=== PATIENT | male | born 1985 | race Hispanic/Latino ===

== ENCOUNTER 2022-04-03 04:45 | Emergency (ER) | payer BC, OTHER ==
--- OUTSIDE RECORDS SUMMARY | 2022-04-03 04:48 | XMS REPORT | Continuity of Care Document ---
:1985 Author Organization [facility] t Address [address] [place] [address] Care Team Providers Name Role Phone Timothy Gonzalez Juanjose Primary Care Physician Treva Champion Attending Clinician Katie Gonzalez RN Attending Clinician Unavailable UNKNOWN, ATTENDING Attending Clinician Unavailable Doctor Unassigned, [place] Attending Clinician Unavailable Richelle Damon Attending Clinician Carol Taylor Attending Clinician Payers Payer Name Policy Type Policy Number Effective Date Expiration Date Allan grover [facility] CLAIMS [id number] 2020 00:00:00 Problems Condition Condition Condition Status Onset Resolution Last Treating Co mments Source Name Details Category Date Date Treatment Clinician Date M54.16 M54.16 Diagnosis Active 2017-10-18 Me moria LUMBAR LUMBAR 7-19 11:11:00 l RADICULOPA RADICULOPA 00:00: Grzegorz reardon THY THY Active 00 10/18/2017 [facility] Lower back Lower back Disease Active U nivers pain pain 5-25 ity of 00:00: [place] [id number] Medical Branch Simple Simple Problem Active 2018-05-07 Joaquín jorge obesity obesity 16:04:13 l (disorder) (disorder) Grzegorz reardon Active Problem 05/07/2018 [facility] Scoliosis, Scoliosis Problem 2018-05-07 Memoria unspecifie , 16:04:13 l d unspecifie Nhan cabrales 05/07/2018 [facility] History of Past Illness Condition Condition Condition Status Onset Resolution Last Treating Co mments Source Name Details Category Date Date Treatment Clinician Date Radiculopa Radiculop Problem 2017-2018-05-07 2018-05-07 andrei Brunson, 725 16:04:13 16:04:13 l lumbar lumbar 03:09: [place] region 37 10/24/2017 05/07/2018 [facility] Allergies, Adverse Reactions, Alerts Allergy Allergy Status Severity Reaction(s) Onset Inactive Treating Comm ents Source Name Type Date Date Clinician NO KNOWN Drug Active Univers ALLERGIE Class ity of S [facility] [place] Social History Social Habit Start Date Stop Date Quantity Comments Source Exposure to Yes [facility] SARS-CoV-2 [facility] (event) [place] Tobacco use and 2020-11-28 2020-11-28 Never used Universit y of exposure 00:00:00 00:00:00 [facility] [place] Alcohol intake 2020-11-28 2020-11-28 Current drinker Unive rsity of 00:00:00 00:00:00 of alcohol [facility] (finding) Branch Social History 2017-09-10 2017-09-10 [facility] 19:29:13 19:29:13 Sex Ass[birth year] At [birth year] Universit y of 00:00:00 00:00:00 [facility] [place] Smoking Status Start Date Stop Date Source Never smoker [facility] Medications Ordered Filled Start Stop Current Ordering Indication Dosage Frequency Signature Comments Components Source Medication Medication Date Date Medication? Clinician (SIG) Name Name codeine-gua 2020- No 10mL 10 mL, Uni vers ifenesin 11-28 Oral, ity of (ROBITUSSIN 17:15: 16:11 [place] 10- 00 :00 dose, [facility] [place] mg/5 mL 11/28/20 at [place] solution 10 1215, PERNELL mL codeine-gua 2020- No 10mL 10 mL, Uni vers ifenesin 11-28 Oral, ity of (ROBITUSSIN 17:15: 16:11 [place] 10- 00 :00 dose, [facility] fl[place] mg/5 mL 11/28/20 at Branch solution 10 1215, PER[place]LL mL acetaminoph 2020- No 1000mg 1,000 mg, Univers en 11-28 Oral, ity of (TYLENOL) 16:15: 15:35 [place] tablet [place] :00 dose, [facility] 1,000 mg 11/28/20 at [facility] 1115, Routine ibuprofen 2020- No 800mg 800 mg, Uni vers (IBU) 11-28 Oral, ity of tablet 800 16:15: 15:36 ONCE, 1 [place] mg 00 :00 dose, [facility] 11/28/20 at [place] [id number], PERNELL acetaminoph 2020- No 1000mg 1,000 mg, Univers en 11-28 Oral, ity of (TYLENOL) 16:15: 15:35 [place]CE, [place] tablet [place] :00 dose, [facility] 1,000 mg 11/28/20 at [facility] 1115, Routine ibuprofen 2020- No 800mg 800 mg, Uni vers (IBU) 11-28 Oral, ity of tablet 800 16:15: 15:36 ONCE, 1 [place] mg 00 :00 dose, [facility] 11/28/20 at [place] [id number], [place] benzonatate Yes [id number] 100mg Take 1 Univers 100 mg 8-29 capsule by ity of capsule 00:00: mouth 3 [place] 00 (three) Medical times Branch daily as needed for Cough. albuterol 0 Yes [id number] 2{puff} Inhale 2 Univers 90 8-29 Puffs ity of mcg/actuati 00:00: every 4 [place] on inhaler 00 (four) Medical hours as Branch needed for Wheezing or Shortness of Breath. benzonatate 2020-0 Yes [id number] 100mg Take 1 Univers 100 mg 8-29 capsule by ity of capsule 00:00: mouth 3 [place] 00 (three) Medical times Branch daily as needed for Cough. albuterol 2020-0 Yes [id number] 2{puff} Inhale 2 Univers 90 8-29 Puffs ity of mcg/actuati 00:00: every 4 [place] on inhaler 00 (four) Medical hours as Branch needed for Wheezing or Shortness of Breath. codeine-gua 2020- No [id number] 10mL Take 10 mL Univers ifenesin 11-28 by mouth ity of 10-100 mg/5 00:00: 04:59 every 6 [place] mL solution 00 :00 (six) Medical hours as Branch needed for Cough for up to 7 days. Indication s: acute pain codeine-gua 2020- No 4647 10mL Take 10 mL Univers ifenesin 11-28 by mouth ity of 10-100 mg/5 00:00: 04:59 every 6 [place] mL solution 00 :00 (six) Medical hours as Branch needed for Cough for up to 7 days. Indication s: acute pain phentermine Yes 37.5mg Take 37.5 Univers (ADIPEX-P) 8-21 mg by ity of 37.5 mg 21:18: mouth [place] tablet 18 daily with Medical breakfast. Branch phentermine Yes 37.5mg Take 37.5 Univers (ADIPEX-P) 8-21 mg by ity of 37.5 mg 21:18: mouth [place] tablet 18 daily with Medical breakfast. Branch phentermine Yes 37.5mg Take 37.5 Univers (ADIPEX-P) 8-21 mg by ity of 37.5 mg 21:18: mouth [place] tablet 18 daily with Medical breakfast. Branch acetaminoph 2020- No 4647 1{tbl} Take 1 U nivers en-codeine 11-20 tablet by ity of 300-30 mg 00:00: 04:59 mouth [place] tablet 00 :00 every 6 Medical (six) Branch hours as needed for Pain (scale 7-10) for up to 7 days. Indication s: acute pain pregabalin Yes See Memoria 50 MG Oral 7-19 Instructio l Capsule 21:14: ns, 1 cap Ragini nn [Lyrica] 00 PO Q HS x 1 week, then BID, # 60 cap, 1 Refill(s) pregabalin Yes See Memoria 50 MG Oral 7-19 Instructio l Capsule 21:14: ns, 1 cap Ragini nn [Lyrica] 00 PO Q HS x 1 week, then BID, # 60 cap, 1 Refill(s) pregabalin Yes See Memoria 50 MG Oral 7-19 Instructio l Capsule 21:13: ns, 1 cap Ragini nn [Lyrica] 00 PO Q HS x 1 week, then BID, # 60 cap, 0 Refill(s), given to patient pregabalin Yes See Memoria 50 MG Oral 7-19 Instructio l Capsule 21:13: ns, 1 cap Ragini nn [Lyrica] 00 PO Q HS x 1 week, then BID, # 60 cap, 0 Refill(s), given to patient Flexeril Yes PO, TID, 0 Mem oria 6-11 Refill(s) l 20:16: [place] 00 meloxicam Yes See Memoria 6-11 Instructio l 20:16: ns, PO [place] 00 Daily, 0 Refill(s) Flexeril Yes PO, TID, 0 Mem oria 6-11 Refill(s) l 20:16: [place] 00 meloxicam 0 Yes See Memoria 6-11 Instructio l 20:16: ns, PO [place] 00 Daily, 0 Refill(s) phentermine Yes 37.5mg Take 37.5 Univers (ADIPEX-P) 5-25 mg by ity of 37.5 mg 15:09: mouth [place] tablet 35 daily with Medical breakfast. Branch phentermine Yes 37.5mg Take 37.5 Univers (ADIPEX-P) 5-25 mg by ity of 37.5 mg 15:09: mouth [place] tablet 35 daily with Medical breakfast. Branch cyclobenzap 2014-04 Yes 10mg Take 1 Tab Univers rine 1-16 by mouth 3 ity of (FLEXERIL) 00:00: (three) [place] 10 mg 00 times Medical tablet daily. Branch cyclobenzap 2014-04 Yes 10mg Take 1 Tab Univers rine 1-16 by mouth 3 ity of (FLEXERIL) 00:00: (three[place] 10 mg 00 times Medical tablet daily. Branch cyclobenzap 2014-04 Yes 10mg Take 1 Tab Univers rine 1-16 by mouth 3 ity of (FLEXERIL) 00:00: (three[place] 10 mg 00 times Medical tablet daily. Branch cyclobenzap 2014-04 Yes 10mg Take 1 Tab Univers rine 1-16 by mouth 3 ity of (FLEXERIL) 00:00: (three[place] 10 mg 00 times Medical tablet daily. Branch cyclobenzap 2014-04 Yes 10mg Take 1 Tab Univers rine 1-16 by mouth 3 ity of (FLEXERIL) 00:00: (three[place] 10 mg 00 times Medical tablet daily. Branch Vital Signs Vital Name Observation Time Observation Value Comments Source Systolic blood 2020-11-28 14:59:00 128 mm[Hg] Univer sity of [facility] Diastolic blood 2020-11-28 14:59:00 87 mm[Hg] Unive rsity [facility] Heart rate 2020-11-28 14:59:00 104 /min [facility] Body temperature 2020-11-28 14:59:00 38.11 Maryanne [facility] Respiratory rate 2020-11-28 14:59:00 20 /min [facility] Body height 2020-11-28 14:59:00 182.9 cm [facility] Body weight 2020-11-28 14:59:00 104.327 kg [facility] BMI 2020-11-28 14:59:00 31.19 kg/m2 [facility] Oxygen saturation in 2020-11-28 14:59:00 97 /min [facility] Arterial blood by [facility] Pulse oximetry Branch Weight 2017-10-18 20:33:00 [facility] [place] Height 2017-10-18 20:33:00 182.88 cm [facility] BMI Calculated 2017-10-18 20:33:00 Chava Hunt Temperature Oral (F) 2017-10-18 20:33:00 98.2 F [facility] Heart Rate 2017-10-18 20:33:00 [facility] [place] Systolic (mm Hg) 2017-10-18 20:33:00 Joaquín hinds [place] Diastolic (mm Hg) 2017-10-18 20:33:00 [facility] orial [place] Height 2017-09-10 19:24:00 182.88 cm [facility] BMI Calculated 2017-09-10 19:24:00 Gabrielleori al [place] Weight 2017-09-10 19:24:00 Jacqueline Silverio Heart Rate 2017-09-10 19:24:00 Jacqueline Silverio Systolic (mm Hg) 2017-09-10 19:24:00 Joaquín hinds [place] Diastolic (mm Hg) 2017-09-10 19:24:00 Gabrielle oviedoblessing [place] Procedures Procedure Date / Time Performed Performing Clinician Cy e XR CHEST 1 VW 2020-11-28 15:24:58 Treva Maciel [facility] CONSENT/REFUSAL FOR 2020-11-28 14:50:27 Doctor Unassigned, No Un [facility] DIAGNOSIS AND Name [facility] TREATMENT ASSIGNMENT OF BENEFITS 2020-11-20 21:12:26 Doctor Unassigned, No [facility] Operation<sup>1</sup> [facility] ermnicki Encounters Start End Encounter Admission Attending Care Care Encounter Source Date/Time Date/Time Type Type Clinicians Facility Department ID 2021-01-31 Emergency [facility] [id number] Univers 18:50:14 ity [facility] 2020-11-28 2020-11-28 Emergency Oscar RUST [id number] Univers 10:03:00 12:21:00 Treva Malloy [id number] i ty of [place] [id number] [facility] [id number] [facility] 084 Branch 2020-11-21 2020-11-21 Telephone RICHELLE Gonzalez [id number] Univers 00:00:00 00:00:00 Katie CARTWRIGHT [id number] it y of [facility] [id number] [place] [id number] [facility] 019 Branch 2020-11-20 2020-11-20 Outpatient R UNKNOWN, [facility] [id number] Univers 16:20:00 16:20:00 ATTENDING ity [facility] 2020-11-20 2020-11-20 Orders Doctor PEOPLES [id number] Univers 00:00:00 00:00:00 Only UnassignedGABBIE [id number] ity of [place] [id number] [place] [id number] [facility] 009 Branch 2020-11-20 2020-11-20 Letter Doctor RICHELLE [id number] Univers 00:00:00 00:00:00 (Out) Unassigned, GABBIE [id number] ity of [place] [facility] [id number] [place] [id number] [facility] 044 [place] 2017-10-18 2017-10-19 Outpatient nullFlavo [facility] [id number] Memoria 19:30:00 04:59:59 r Clinic TM 01 [facility] 2017-10-18 2017-10-19 Outpatient nullFlavo [facility] [id number] Memoria 19:30:00 04:59:59 r Clinic TM [facility] 2017-10-18 2017-10-19 Outpatient [facility]Flavo [facility] [id number] Memoria 16:03:00 04:59:00 r [place] 00 [facility] 2017-10-18 2017-10-19 Outpatient [facility]Flavo [facility] [id number] Memoria 16:03:00 04:59:00 r [place] 00 [facility] 2017-10-18 2017-10-18 Outpatient Richelle Damon MHMISCHER MHMISCHER [id number] 14:30:00 23:59:59 C 2017-10-18 2017-10-18 Outpatient KADEN TaylorToni [facility] [id number] 11:03:00 23:59:00 Carol 00 Kassie 2017-10-18 2017-10-18 Outpatient KADENIE MHIE [id number] Memoria 14:30:00 14:30:00 01 [facility] 2017-09-11 2017-09-13 Phone nullFlavo [facility] [id number] Memoria 16:23:00 04:59:59 Message r Clinic [facility] 02 [facility] 2017-09-11 2017-09-13 Phone nullFlavo [facility] [id number] Memoria 16:23:00 04:59:59 Message r Clinic TM 02 [facility] 2017-09-11 2017-09-13 Phone nullFlavo [facility] [id number] Memoria 16:18:00 04:59:59 Message r Clinic TM [facility] 2017-09-11 2017-09-13 Phone nullFlavo [facility] [id number] Memoria 16:18:00 04:59:59 Message r Clinic [facility] 01 l [place] 2017-09-11 2017-09-12 Outpatient MHMISCHER MHMISCHER [id number] 11:23:00 23:59:59 02 2017-09-11 2017-09-12 Outpatient MHMISCHER MHMISCHER [id number] 11:18:00 23:59:59 01 2017-09-10 2017-09-11 Outpatient nullFlavo [facility] [id number] Memoria 19:00:00 04:59:59 r Clinic TM 00 l [place] 2017-09-10 2017-09-11 Outpatient nullFlavo [facility] [id number] Memoria 19:00:00 04:59:59 r Clinic [facility] 00 l [place] 2017-09-10 2017-09-10 Outpatient Brandon, MHMISCHER MHMISCHER [id number] 14:00:00 23:59:59 Carol 00 Kassie 2017-09-10 2017-09-10 Outpatient MHIE MHIE [id number] Memoria 14:00:00 14:00:00 00 maya Silverio Results Test Description Test Time Test Comments Results Result Sourc e Comments XR CHEST 1 VW 2020-11-01 Patchy bilateral Unive rsity of 9 airspace opacities [facility] 16:12:29 compatible with Branch pneumonia. RL: [id number]: [id number] History: ERIC Ordering Physician: TREVA MACIEL COMPARISON:None FINDINGS: Single AP view the chest is provided. The trachea is midline. The cardiomediastinal silhouette is within normal limits. ?Patchy bilateralairspace opacities compatible with pneumonia.. ?The costophrenic recessesare clear. There is a remote healed left clavicular fracture. [facility], Radiant Results Inft User - 11/28/2020 11:13 AM CDT History: ERIC Ordering Physician: TREVA MACIEL COMPARISON:NoneFINDIN GS: Single AP view the chest is provided. The trachea is midline. The cardiomediastinal silhouette is within normal limits. Patchy bilateralairspace opacities compatible with pneumonia.. The costophrenic recessesare clear. There is a remote healed left clavicular fracture.IMPRESSIONPa tchy bilateral airspace opacities compatible with pneumonia.RL: [id number]: [id number] signed by Fabby Dumont MD at 11/28/2020 11:12 AM XR CHEST 1 VW 2020-08-2 Patchy bilateral Unive rsity of 9 airspace opacities [facility] 16:12:29 compatible with Branch pneumonia. RL: [id number]: [id number] History: ERIC Ordering Physician: TREVA MACIEL COMPARISON:None FINDINGS: Single AP view the chest is provided. The trachea is midline. The cardiomediastinal silhouette is within normal limits. ?Patchy bilateralairspace opacities compatible with pneumonia.. ?The costophrenic recessesare clear. There is a remote healed left clavicular fracture. [facility], Radiant Results Inft User - 11/28/2020 11:13 AM CDT History: ERIC Ordering Physician: TREVA MACIEL COMPARISON:NoneFINDIN GS: Single AP view the chest is provided. The trachea is midline. The cardiomediastinal silhouette is within normal limits. Patchy bilateralairspace opacities compatible with pneumonia.. The costophrenic recessesare clear. There is a remote healed left clavicular fracture.IMPRESSIONPa tchy bilateral airspace opacities compatible with pneumonia.RL: [id number]: [id number] signed by Fabby Dumont MD at 11/28/2020 11:12 AM
[2022-04-03] MEDS ORDERED: IBUPROFEN 200 MG TAB PO ONE (05:17)
--- NOTE | 2022-04-03 06:04 | EDPHYS ---
Physician Documentation [facility] Name: Gianni Sprague Age: 36 yrs Sex: Male : 1985 Arrival Date: 04/03/2022 Time: 04:48 Bed 10 Private MD: Dread Iqbal HPI: 04/03 05:55 This 36 yrs old Male presents to ER via Ambulatory with complaints of Ankle tylor Injury. 05:55 The patient presents with decreased range of motion, a deformity, an injury. The tylor complaints affect the right ankle, right ankle and anterior aspect of right ankle. Onset: The symptoms/episode began/occurred 2 day(s) ago. Context: The problem was sustained on a street or driveway, at work. Associated signs and symptoms: Pertinent positives: swelling. Modifying factors: The symptoms are alleviated by elevation of extremity, ice packs, sitting, the symptoms are aggravated by weight bearing, movement. Severity of symptoms: At their worst the symptoms were moderate, in the emergency department the symptoms are unchanged. The patient has not experienced similar symptoms in the past. Historical: - Allergies: 05:21 No Known Allergies; bb - Home Meds: 05:21 Adderall XR Oral [Active]; testosterone injection [Active]; bb - PSHx: 05:21 foot surgery; bb - Immunization history:: Client reports receiving the 2nd dose of the Covid vaccine. - Social history:: Smoking status: Patient reports use of chewing tobacco. - Family history:: not pertinent. ROS: 05:55 Constitutional: Negative for fever, chills, and weight loss, Eyes: Negative for injury, tylor pain, redness, and discharge, ENT: Negative for injury, pain, and discharge, Neck: Negative for injury, pain, and swelling, Cardiovascular: Negative for chest pain, palpitations, and edema, Respiratory: Negative for shortness of breath, cough, wheezing, and pleuritic chest pain, Abdomen/GI: Negative for abdominal pain, nausea, vomiting, diarrhea, and constipation, Back: Negative for injury and pain, : Negative for injury, bleeding, discharge, and swelling, Skin: Negative for injury, rash, and discoloration, Neuro: Negative for headache, weakness, numbness, tingling, and seizure, Psych: Negative for depression, anxiety, suicide ideation, homicidal ideation, and hallucinations, Allergy/Immunology: Negative for hives, rash, and allergies, Endocrine: Negative for neck swelling, polydipsia, polyuria, polyphagia, and marked weight changes, Hematologic/Lymphatic: Negative for swollen nodes, abnormal bleeding, and unusual bruising. 05:55 MS/extremity: Positive for injury or acute deformity, decreased range of motion, pain, swelling, tenderness, of the right ankle, right Achilles and anterior aspect of right ankle. Exam: 05:55 Constitutional: This is a well developed, well nourished patient who is awake, alert, tylor and in no acute distress. Head/Face: Normocephalic, atraumatic. Eyes: Pupils equal round and reactive to light, extra-ocular motions intact. Lids and lashes normal. Conjunctiva and sclera are non-icteric and not injected. Cornea within normal limits. Periorbital areas with no swelling, redness, or edema. ENT: Nares patent. No nasal discharge, no septal abnormalities noted. Tympanic membranes are normal and external auditory canals are clear. Oropharynx with no redness, swelling, or masses, exudates, or evidence of obstruction, uvula midline. Mucous membranes moist. Neck: Trachea midline, no thyromegaly or masses palpated, and no cervical lymphadenopathy. Supple, full range of motion without nuchal rigidity, or vertebral point tenderness. No Meningismus. Chest/axilla: Normal chest wall appearance and motion. Nontender with no deformity. No lesions are appreciated. Cardiovascular: Regular rate and rhythm with a normal S1 and S2. No gallops, murmurs, or rubs. Normal PMI, no JVD. No pulse deficits. Respiratory: Lungs have equal breath sounds bilaterally, clear to auscultation and percussion. No rales, rhonchi or wheezes noted. No increased work of breathing, no retractions or nasal flaring. Abdomen/GI: Soft, non-tender, with normal bowel sounds. No distension or tympany. No guarding or rebound. No evidence of tenderness throughout. Back: No spinal tenderness. No costovertebral tenderness. Full range of motion. Male : Normal genitalia with no discharge or lesions. Skin: Warm, dry with normal turgor. Normal color with no rashes, no lesions, and no evidence of cellulitis. Neuro: Awake and alert, GCS 15, oriented to person, place, time, and situation. Cranial nerves II-XII grossly intact. Motor strength 5/5 in all extremities. Sensory grossly intact. Cerebellar exam normal. Normal gait. Psych: Awake, alert, with orientation to person, place and time. Behavior, mood, and affect are within normal limits. 05:55 Musculoskeletal/extremity: ROM: limited active range of motion, limited passive range of motion, limited active range of motion due to pain, limited passive range of motion due to pain, in the right ankle, right Achilles and anterior aspect of right ankle. Vital Signs: 05:02 BP 139 / 81 RA Sitting (auto/lg); Pulse 120; Resp 18; Temp 98.2(O); Pulse Ox 98% on mb4 R/A; Weight 107.95 kg (R); Height 6 ft. 0 in. (182.88 cm); Pain 7/10; 05:02 Body Mass Index 32.28 (107.95 kg, 182.88 cm) mb4 MDM: 05:01 Patient medically screened. tylor 06:00 Differential diagnosis: fracture, sprain, arthritis. Data reviewed: vital signs, nurses [facility] notes, radiologic studies, plain films. Data interpreted: groundwater monitoring technician: not applicable for this patient encounter. rate is 120 beats/min, rhythm is regular, Pulse oximetry: on room air is 98 %. Test interpretation: by ED physician or midlevel provider: plain radiologic studies. Counseling: I had a detailed discussion with the patient and/or guardian regarding: the historical points, exam findings, and any diagnostic results supporting the discharge/admit diagnosis, lab results, radiology results, the need for outpatient follow up, for definitive care, a family practitioner, a orthopedic surgeon. 04/03 05:02 Order name: Ankle Right [address] [facility] 04/03 05:02 Order name: Ice pack; Complete Time: 05:14 tylor 04/03 05:55 Order name: Walking boot; Complete Time: 06:13 tylor Administered Medications: 05:25 Drug: Motrin (ibuprofen) 600 mg Route: PO; bb Disposition Summary: 04/03/22 06:02 Discharge Ordered Location: Home tylor Problem: new tylor Symptoms: have improved tylor Condition: Stable tylor Diagnosis - Sprain of deltoid ligament of right ankle tylor - Sprain of calcaneofibular ligament of right ankle tylor Followup: tylor - With: Private Physician - When: 2 - 3 days - Reason: Recheck today's complaints, Continuance of care, Re-evaluation by your physician Followup: tylor - With: Marcos Taylor MD - When: 2 - 3 days - Reason: Recheck today's complaints, Continuance of care, Re-evaluation by your physician Followup: tylor - With: Les Gleason MD - When: 2 - 3 days - Reason: Recheck today's complaints, Continuance of care, Re-evaluation by your physician Discharge Instructions: - Discharge Summary Sheet tylor - Ankle Fracture tylor - Ankle Sprain tylor - RICE Therapy for Routine Care of Injuries tylor - Ankle Pain tylor - Walking Boot, Adult tylor Forms: - Medication Reconciliation Form tylor - Thank You Letter tylor - Antibiotic Education tylor - Prescription Opioid Use tylor Signatures: Dispatcher [employer] Dread Cristobal MD MD cha Ballard, Brenda, RN RN bb
--- NOTE | 2022-04-03 06:04 | ER ---
Nurse's Notes [facility] Name: Gianni Sprague Age: 36 yrs Sex: Male : 1985 Arrival Date: 04/03/2022 Time: 04:48 Bed 10 Private MD: Diagnosis: Sprain of deltoid ligament of right ankle;Sprain of calcaneofibular ligament of right ankle Presentation: 04/03 05:20 Chief complaint: Patient states: he was at work and tried to jump a fence and rolled bb his right ankle which is swollen and painful. Coronavirus screen: At this time, the client does not indicate any symptoms associated with coronavirus-19. Ebola Screen: No symptoms or risks identified at this time. Initial Sepsis Screen: Does the patient meet any 2 criteria? No. Patient's initial sepsis screen is negative. Does the patient have a suspected source of infection? No. Patient's initial sepsis screen is negative. Risk Assessment: Do you want to hurt yourself or someone else? Patient reports no desire to harm self or others. Onset of symptoms was April 03, 2022. 05:20 Method Of Arrival: Ambulatory bb 05:20 Acuity: MICHAEL 4 bb Triage Assessment: 05:21 General: Appears in no apparent distress. uncomfortable, Behavior is calm, cooperative. bb Pain: Complains of pain in right ankle Pain currently is 7 out of 10 on a pain scale. Neuro: Level of Consciousness is awake, alert, obeys commands, Oriented to person, place, time, situation. Cardiovascular: Capillary refill < 3 seconds Patient's skin is warm and dry. Respiratory: Respiratory effort is even, unlabored, Respiratory pattern is regular. GI: No signs and/or symptoms were reported involving the gastrointestinal system. Derm: Skin is pink, warm \T\ dry. Musculoskeletal: Swelling present in right ankle. Historical: - Allergies: 05:21 No Known Allergies; bb - Home Meds: 05:21 Adderall XR Oral [Active]; testosterone injection [Active]; bb - PSHx: 05:21 foot surgery; bb - Immunization history:: Client reports receiving the 2nd dose of the Covid vaccine. - Social history:: Smoking status: Patient reports use of chewing tobacco. - Family history:: not pertinent. Screenin:24 [facility] ED Fall Risk Assessment (Adult) History of falling in the last 3 months, bb including since admission Yes- single mechanical fall (1 pt) Confusion or Disorientation No (0 pts) Intoxicated or Sedated No (0 pts) Mobility Assist Device Used No (0 pt) Score/Fall Risk Level 0 - 2 = Low Risk Oriented to surroundings. Abuse screen: Denies threats or abuse. Nutritional screening: No deficits noted. Tuberculosis screening: No symptoms or risk factors identified. Assessment: 05:24 Reassessment: No changes from previously documented assessment. see triage assessment. bb 06:17 Reassessment: Patient is alert, oriented x 3, equal unlabored respirations, skin bb warm/dry/pink. walking boot in place pt verbalized understanding of and agrees to plan of care discharge instructions given pt ambulated with steady gait to exit. Vital Signs: 05:02 BP 139 / 81 RA Sitting (auto/lg); Pulse 120; Resp 18; Temp 98.2(O); Pulse Ox 98% on mb4 R/A; Weight 107.95 kg (R); Height 6 ft. 0 in. (182.88 cm); Pain 7/10; 05:02 Body Mass Index 32.28 (107.95 kg, 182.88 cm) mb4 ED Course: 04:48 Patient arrived in ED. mw2 05:01 Dread Leslie MD is Attending Physician. [facility] 05:21 Triage completed. bb 05:21 Arm band placed on Patient placed in an exam room, on a stretcher, on pulse oximetry. bb 05:24 Patient has correct armband on for positive identification. Bed in low position. Call bb light in reach. Side rails up X 1. 05:27 Ankle Right 3 View XRAY In Process Unspecified. EDMS 06:00 walking boot applied to right lower extremity. mb4 06:01 Marcos Taylor MD is Referral Physician. tylor 06:02 Les Gleason MD is Referral Physician. tylor 06:18 No provider procedures requiring assistance completed. Patient did not have IV access bb during this emergency room visit. Administered Medications: 05:25 Drug: Motrin (ibuprofen) 600 mg Route: PO; bb Medication: 05:24 VIS not applicable for this client. bb Outcome: 06:02 Discharge ordered by . tylor 06:18 Discharged to home ambulatory. bb 06:18 Condition: stable 06:18 Discharge instructions given to patient, Instructed on discharge instructions, follow up and referral plans. Demonstrated understanding of instructions, follow-up care. 06:18 Patient left the ED. bb Signatures: Dispatcher [employer] Dread Cristobal MD MD cha Ballard, Brenda RN RN Angelique Meza mw2 Claire Clinton mb4
[2022-04-03 06:23] VITALS: BP 139/81; TEMP 98.2; O2SAT 98
--- NOTE | 2022-04-03 14:31 | RAD REPORT ---
EXAM DESCRIPTION: RAD - Ankle Right 3 View - 04/03/2022 5:26 am CLINICAL HISTORY: Pain COMPARISON: None. TECHNIQUE: Right Ankle 3 Views FINDINGS: Fragmentation or possible fracture of indeterminate age at right calcaneal Achilles tendon attachment site. No dislocation. No significant sclerotic/lytic bone lesion. Joint spaces unremarkable. Mild soft tissue swelling surrounding right ankle. IMPRESSION: 1. Mild right ankle soft tissue swelling. 2. Fragmentation or possible fracture of indeterminate age at right calcaneal Achilles tendon attachm ent site. Clinical correlation for point tenderness at this site. Electronically signed by: Gordo Rocha MD 04/03/2022 6:01 AM ACUTE CARE NURSING ASSISTANT Due to temporary technical issues with the PACS/Fluency reporting system, reports are being signed by the in house radiologists without review as a courtesy to insure prompt reporting. The interpreting radiologist is fully responsible for the content of the report.
== END 2022-04-03 06:18 | disposition home or self-care (01) ==
LOC: ER 04:45
DX: S93.421A Sprain of deltoid ligament of right ankle, initial encounter (principal); S93.411A Sprain of calcaneofibular ligament of right ankle, initial encounter; F17.220 Nicotine dependence, chewing tobacco, uncomplicated
CPT/HCPCS: 99284